=== PATIENT | female | born 1935 | race Two or more races ===

== ENCOUNTER 2019-03-23 14:20 | Emergency (ER) | payer OTHER ==
[~2019-03-23] VITALS: Ht 154.9 cm; Wt 70.3 kg
[~2019-03-23 14:20] MED LIST: ARICEPT5 MG; CIPROFLOXACIN750 MG PO; CLONAZEPAM1 MG PO; COZAAR100 MG PO; DOCUSATE SODIU100 MG PO; LOSARTAN POTASS25 MG; METHYLPRED4 MG/DOSE- PO; NAMENDA XR14 MG PO; NEURONTIN PO; PERCOCET 5/3251 TAB PO; PROFERRIN12 MG PO; RESTORIL30 MG PO; SIMVASTATIN20 MG; SYNTHROID88 MCG
[2019-03-23] MEDS ORDERED: BUSPIRONE HCL7.5 MG PO (15:14)
[2019-03-23] MEDS ORDERED: HORIZANT300 MG (15:14)
[2019-03-23] MEDS ORDERED: SYNTHROID100 MCG PO (15:14)
== END 2019-03-23 22:29 | disposition home or self-care (01) ==
LOC: ER 14:20
DX: N39.0 Urinary tract infection, site not specified (principal); G30.8 Other Alzheimer's disease; F02.80 Dementia in other diseases classified elsewhere, unspecified severity, without behavioral disturbance, psychotic disturbance, mood disturbance, and anxiety